=== PATIENT | female | born 1990 ===

== ENCOUNTER 2017-01-30 14:37 | Emergency (ER) | payer SELFPAY ==
[2017-01-30 14:44] VITALS: BP 112/67; PULSE 81; RESP 16; TEMP 98.8; O2SAT 99
--- NOTE | 2017-01-30 15:09 | ED PDOC ---
HPI: Female Pain Time Seen by Provider: 01/30/17 14:46 Chief Complaint (Nursing): Female Genitourinary Chief Complaint (Provider): Vaginal bleeding History Per: Patient History/Exam Limitations: no limitations Onset/Duration Of Symptoms: Days (1) Current Symptoms Are (Timing): Still Present Additional Complaint(s): The pt is a 26yo female, [id number], presents to ED for evaluation of abnormal vaginal bleeding since yesterday. Pt states her last LMP was on 01/20/17 and lasted for 3 days. She states while having sexual intercourse, she experienced some pain and states this morning she had clear vaginal discharge with bright red blood. She denies any paint at the moment. Offers no additional medical complaints. Last Menstral Period: 01/20/17 : 2 Para: 1 Past Medical History Reviewed: Historical Data, Nursing Documentation, Vital Signs Vital Signs: Last Vital Signs Temp 98.8 F 01/30/17 14:41 Pulse 81 01/30/17 14:41 Resp 16 01/30/17 14:41 BP 112/67 01/30/17 14:41 Pulse Ox 99 01/30/17 14:41 - Medical History PMH: No Chronic Diseases - Surgical History Surgical History: No Surg Hx - Family History Family History: States: Unknown Family Hx - Living Arrangements Living Arrangements: With Family - Allergies Allergies/Adverse Reactions: Allergies Allergy/AdvReac Type Severity Reaction Status Date / Time No Known Allergies Allergy Verified 01/30/17 14:41 Review of Systems ROS Statement: Except As Marked, All Systems Reviewed And Found Negative Genitourinary Female: Positive for: Vaginal Bleeding Physical Exam - Reviewed Nursing Documentation Reviewed: Yes Vital Signs Reviewed: Yes - Physical Exam Appears: Positive for: Well, Non-toxic, No Acute Distress Head Exam: Positive for: ATRAUMATIC, NORMAL INSPECTION, NORMOCEPHALIC Skin: Positive for: Normal Color Neck: Positive for: Normal Respiratory: Negative for: Respiratory Distress Gastrointestinal/Abdominal: Positive for: Normal Exam, Soft. Negative for: Tenderness Pelvic Exam: Positive for: External Exam Normal, No Cerv. Motion Tender, No Masses. 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 Scribe Attestation: Documented by Caro Boyle acting as a scribe for ALVA Leroy Provider Attestation: All medical record entries made by the Scribe were at my direction and personally dictated by me. I have reviewed the chart and agree that the record accurately reflects my personal performance of the history, physical exam, medical decision making, and the department course for this patient. I have also personally directed, reviewed, and agree with the discharge instructions and disposition. Disposition - Clinical Impression Clinical Impression: Vaginal bleeding - Patient ED Disposition Is Patient to be Admitted: No Counseled Patient/Family Regarding: Diagnosis, Need For Followup - Disposition [facility] Disposition: Routine/Home Disposition Time: 15:30 Condition: GOOD Additional Instructions: Please follow-up with CARDIAC CATH TECH. Cultures pending. Instructions: Menorrhagia (ED)
== END 2017-01-30 15:50 | disposition home or self-care (01) ==
LOC: H.ER 14:37
DX: N89.8 Other specified noninflammatory disorders of vagina (principal)

== ENCOUNTER 2017-08-19 13:03 | Emergency (ER) | payer OTHER, SELFPAY ==
[2017-08-19 13:07] VITALS: BP 130/80; PULSE 65; RESP 16; TEMP 98; O2SAT 100
[2017-08-19 13:08] VITALS: BMI 39.6
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
== END 2017-08-19 15:22 | disposition home or self-care (01) ==
LOC: H.ER 13:03
DX: M54.9 Dorsalgia, unspecified (principal); M54.2 Cervicalgia; V43.52XA Car driver injured in collision with other type car in traffic accident, initial encounter; Y92.410 Unspecified street and highway as the place of occurrence of the external cause; I10 Essential (primary) hypertension